=== PATIENT | male | born 1965 | race Caucasian/White ===

== ENCOUNTER → 2017-05-11 | Outpatient (CLI) | payer OTHER ==
[~2017-05-11] MED LIST: ALPRAZOLAM PO; ALPRAZOLAM0.5 MG PO; DICLOFENAC PO; FLEXERIL PO; FLEXERIL10 MG PO; HYDROCODON-ACE1 EAC4 PO; HYDROCODONE SYRUP PO; LORTAB 10/500 T1 TAB PO; PHENERGAN12.5 MG/SU RC; PHENERGAN25 MG PO; PREDNISONE10 MG/DOSE PO; VICODIN 5/500 T1 TAB PO
--- NOTE | ~2017-05-11 | CR172 ---
[facility] A Service of [facility] & [facility] RADIOLOGY TEXT RESULTS PATIENT: LANE VILLALTA RAY LOCATION: [facility] : 61 UNIT #: [id number] AGE: [address]: Sarah Yang MD SEX: M ORDER DR: [id number] [facility] [address] [place], [place] [address] [id number] O MR#: [id number] Acc #: [id number] NAME: LANE VILLALTA : 1965 SEX: M STUDY DATE/TIME: 05/11/2017 11:01 UNIT: [facility] ROOM: STUDY DESCRIPTION: CR Knee 3 Views Lt Attending Physician: Sarah Yang M.D. Referring Physician: Sarah Yang M.D. Ordering Physician: Sarah Yang M.D. Primary Care Physician: Kar Villarreal M.D. MEDICAL IMAGING REPORT This report is preliminary unless electronic signature is present EXAM Left knee, 3 views, 05/11/2017 HISTORY Left knee pain, osteoarthritis left knee, left knee gives out for 4 months. FINDINGS AP and lateral projection of the knee shows smooth articular anatomy without indication of fracture or dislocation at the major weight-bearing surface of the knee. There is no indication of radiopaque foreign body about the knee surface or joint effusion. IMPRESSION Normal knee. Dictated by... Pradeep Gordon M.D. THIS IS AN ELECTRONICALLY VERIFIED REPORT Pradeep Gordon M.D. at 05/12/2017 2:17 PM MIGUELANGEL/abimael TD: 05/11/2017 20:55 JOB #: [id number] MEDICAL IMAGING REPORT Page 1 of 1 COPY
== END | disposition home or self-care (01) ==
LOC: CRAD 10:42
DX: M17.12 Unilateral primary osteoarthritis, left knee (principal)
CPT/HCPCS: 73562